=== PATIENT | female | born 1990 | race Caucasian/White ===

== ENCOUNTER 2022-08-22 23:09 | Emergency (ER) | payer OTHER ==
--- NOTE | 2022-08-22 23:16 | NUR ---
PATENT CALLED TO BE TRIAGE NO RESPONSE. PATIENT LEFT WITHOUT BEING SEEN BY DR. LOPEZ. NO FURTHER CARE PROVIDED FOR PATIENT.
--- NOTE | 2022-08-22 23:25 | NUR ---
CALLED FOR THE SECOND TIME, NO RESPONSE
--- NOTE | 2022-08-22 23:40 | NUR ---
CALLED FOR THE THIRD TIME , NO RESPONSE
== END 2022-08-22 23:16 | disposition left against medical advice (07) ==
LOC: MED 23:09
DX: R10.9 Unspecified abdominal pain (principal); Z53.21 Procedure and treatment not carried out due to patient leaving prior to being seen by health care provider